=== PATIENT | female | born 1965 | race African-American/Black ===

== ENCOUNTER 2021-02-06 17:28 | Emergency (ER) | payer MEDICAID ==
[~2021-02-06] VITALS: Ht 172.7 cm; Wt 99.6 kg
[2021-02-06] MEDS ORDERED: MECLIZINE 25MG TABLET PO ONE (18:15)
[2021-02-06 18:38] LABS: BASOPHILS % 0.5 % (0.0-2.0); EOSINOPHILS % 1.9 % (0.0-5.0); HEMATOCRIT. 38.7 % (36.0-48.0); HEMOGLOBIN. 13.2 g/dL (12.0-16.0); LYMPHOCYTES % 43.1 % (20.0-50.0); MEAN CORPUSCULAR HEMOGLOBIN 30.1 pg (28.0-32.0); MEAN CORPUSCULAR VOLUME 88.1 fL (81.0-99.0); MEAN PLATELET VOLUME 9.7 fl (7.4-10.4); NEUTROPHILS % 48.5 % (40.0-76.0); PLATELET 219 x1000/uL (130-400); RED CELL DISTRIBUTION WIDTH 14.3 % (11.6-14.6)
[2021-02-06 18:39] LABS: CHLORIDE 101 mEq/L (98-107)
[2021-02-06 18:44] LABS: ETHANOL BLOOD < 10 mg/dL
[2021-02-06 18:45] LABS: PROTHROMBIN TIME 10.6 sec (9.6-11.0)
[2021-02-06 18:46] LABS: CLARITY URINE CLEAR (CLEAR); COLOR URINE YELLOW (YELLOW); KETONES URINE NEGATIVE (NEGATIVE); LEUKOCYTE ESTERASE URINE NEGATIVE (NEGATIVE); NITRITE URINE NEGATIVE (NEGATIVE); OCCULT BLOOD URINE 1+ (NEGATIVE); PROTEIN URINE NEGATIVE (NEGATIVE); SPECIFIC GRAVITY URINE 1.018 (1.005-1.030); UROBILINOGEN URINE 0.2 E.U./dL (0.2-1.0)
[2021-02-06 18:47] LABS: LDL CHOLESTEROL 91 mg/dL (5-100)
[2021-02-06 19:03] LABS: CANNABINOID URINE SCREEN NEGATIVE (NEGATIVE); METHADONE URINE SCREEN NEGATIVE (NEGATIVE); OPIATES URINE SCREEN NEGATIVE (NEGATIVE); PHENCYCLIDINE URINE SCREEN NEGATIVE (NEGATIVE)
[2021-02-06 19:04] LABS: *BARBITURATES SCREEN URINE NEGATIVE (NEGATIVE); *BENZODIAZEPINES SCREEN URINE NEGATIVE (NEGATIVE); *COCAINE SCREEN URINE NEGATIVE (NEGATIVE)
[2021-02-06 19:06] LABS: *AMPHETAMINES SCREEN URINE NEGATIVE (NEGATIVE)
[2021-02-06] MEDS ORDERED: KCL 20MEQ/100ML PREMIX 100 ML IV ONE (19:15)
[2021-02-06] MEDS ORDERED: POTASSIUM CHLORIDE 20MEQ TABLET SR PO ONE (19:15)
[2021-02-06] MEDS ORDERED: ONDANSETRON HCL 4MG/2ML INJ IV ONE (20:30)
[2021-02-06] MEDS ORDERED: IOHEXOL-300 100 ML BOTTLE ONE (22:14)
[2021-02-06] MEDS ORDERED: IOHEXOL-350 100 ML BOTTLE ONE (22:15)
[2021-02-06 22:34] VITALS: BP 124/78
== END 2021-02-06 22:32 | disposition short-term general hospital (02) ==
LOC: ER 19:06 → CANBEDREQ 02-07 02:00
DX: R42 Dizziness and giddiness (principal); E87.6 Hypokalemia; E78.00 Pure hypercholesterolemia, unspecified; I10 Essential (primary) hypertension; Z88.6 Allergy status to analgesic agent; Z88.5 Allergy status to narcotic agent; Z98.890 Other specified postprocedural states
CPT/HCPCS: 36415; 70450; 70496; 70498; 71045; 80053; 80305; 80320; 81003; 82962; 83721; 84484; 85025; 85610; 93005; 96374; 99285; J2405; J3480; J8597; Q9967; Z7610; G0480

== ENCOUNTER 2024-02-28 21:43 | Emergency (ER) | payer MEDICAID, OTHER ==
[~2024-02-28] VITALS: Ht 162.6 cm; Wt 80.0 kg
[2024-02-28 21:47] VITALS: BP 166/103; PULSE 97; RESP 16; TEMP 97.1; O2SAT 98
[2024-02-28] MEDS ORDERED: ONDANSETRON 4MG ODT PO STA (22:18)
[2024-02-28 23:02] LABS: BASOPHILS % 0.7 % (0.0-2.0); EOSINOPHILS % 4.9 % (0.0-5.0); HEMATOCRIT. 38.1 % (36.0-48.0); HEMOGLOBIN. 12.5 g/dL (12.0-16.0); LYMPHOCYTES % 33.5 % (20.0-50.0); MEAN CORPUSCULAR HEMOGLOBIN 28.9 pg (28.0-32.0); MEAN CORPUSCULAR HGB CONC 32.9 g/dL (31.0-37.0); MEAN CORPUSCULAR VOLUME 87.9 fL (81.0-99.0); MEAN PLATELET VOLUME 9.8 fl (7.4-10.4); MONOCYTES % 3.6 % (2.0-8.0); NEUTROPHILS % 57.3 % (40.0-76.0); PLATELET 260 x1000/uL (130-400); RED BLOOD CELL COUNT 4.33 mill/uL (4.2-5.4); RED CELL DISTRIBUTION WIDTH 14.4 % (11.6-14.6); WHITE BLOOD COUNT 9.2 x1000/uL (4.5-11.0)
[2024-02-28 23:11] LABS: CARBON DIOXIDE 30 mEq/L (21-32); CHLORIDE 102 mEq/L (98-107); SODIUM 140 mEq/L (136-145)
[2024-02-28 23:12] LABS: CALCIUM 9.8 mg/dL (8.7-10.4); PROTHROMBIN TIME 10.8 sec (9.6-11.0)
[2024-02-28 23:16] LABS: CREATININE 0.7 mg/dL (0.6-1.0); GLUCOSE 102 mg/dL (70-105); TROPONIN I HIGH SENSITIVITY 5 ng/L (3.0-34)
[2024-02-28 23:17] LABS: UREA NITROGEN BLOOD 9 mg/dL (9-23)
[2024-02-28 23:18] LABS: ALANINE AMINOTRANSFERASE 15 IU/L (10-49); ALBUMIN 4.8 g/dL (3.2-4.8); ASPARTATE AMINOTRANSFERASE 21 IU/L (<34)
[2024-02-28 23:19] LABS: BILIRUBIN DIRECT 0.1 mg/dL (<=3.0); BILIRUBIN TOTAL 0.3 mg/dL (0.1-1.0); PROTEIN TOTAL 7.5 g/dL (6.0-8.3)
[2024-02-28 23:20] LABS: POTASSIUM 2.8 mEq/L (3.5-5.1)
== END 2024-02-29 02:21 | disposition left against medical advice (07) ==
LOC: ER 21:43
DX: R10.13 Epigastric pain (principal); R11.10 Vomiting, unspecified; E78.00 Pure hypercholesterolemia, unspecified; I10 Essential (primary) hypertension
CPT/HCPCS: 36415; 76705; 80048; 80076; 84484; 85025; 99284

== ENCOUNTER 2025-04-09 02:13 | Emergency (ER) | payer OTHER ==
[~2025-04-09] VITALS: Ht 154.9 cm; Wt 86.0 kg
[2025-04-09 02:21] VITALS: O2SAT 96
[2025-04-09 02:28] VITALS: BP 144/87; PULSE 91; RESP 20; TEMP 36.8; O2SAT 97
== END 2025-04-09 08:26 | disposition left against medical advice (07) ==
LOC: ER 02:13
DX: R51.9 Headache, unspecified (principal); M54.2 Cervicalgia; M54.9 Dorsalgia, unspecified; W19.XXXA Unspecified fall, initial encounter; Y93.89 Activity, other specified; Y92.89 Other specified places as the place of occurrence of the external cause; Y99.8 Other external cause status
CPT/HCPCS: 99282